=== PATIENT | male | born 1980 | race African-American/Black ===

== ENCOUNTER 2018-10-21 10:59 | Emergency (ER) | payer OTHER ==
[~2018-10-21] VITALS: Ht 177.8 cm; Wt 71.0 kg
[2018-10-21] MEDS ORDERED: METHOCARBAMOL 750 MG TABLET ONE (11:20)
[2018-10-21] MEDS ORDERED: IBUPROFEN 200 MG TABLET ONE (11:21)
[2018-10-21] MEDS ORDERED: METHOCARBAMOL 750 MG TABLET PO ONE (11:30)
[2018-10-21] MEDS ORDERED: IBUPROFEN 800 MG TABLET PO PRN (11:30)
[2018-10-21 12:26] VITALS: BP 122/61
== END 2018-10-21 12:28 | disposition home or self-care (01) ==
LOC: ED 11:49
DX: S39.012A Strain of muscle, fascia and tendon of lower back, initial encounter (principal); X58.XXXA Exposure to other specified factors, initial encounter; Y93.89 Activity, other specified; Y92.89 Other specified places as the place of occurrence of the external cause; Y99.8 Other external cause status
CPT/HCPCS: 99283